=== PATIENT | male | born 1950 | race Caucasian/White ===

== ENCOUNTER 2017-05-25 10:21 | Day surgery (SDC) | payer MEDICAID ==
[2017-05-25] MEDS ORDERED: BUPIVACAINE 0.5% 30 ML SDV ONE (10:32)
[2017-05-25] MEDS ORDERED: LIDOCAINE 1% 300 MG/30 ML SDV ONE (10:32)
--- NOTE | 2017-05-25 11:06 | PDANEPAE ---
ANE History of Present Illness 66 year old male for inguinal hernia repair. ANE Past Medical History - Cardiovascular History Hx Hypertension: No Hx Arrhythmias: No Hx Chest Pain: No Hx Coronary Artery / Peripheral Vascular Disease: No Hx CHF / Valvular Disease: No Hx Palpitations: No Cardiovascular History Comment: ELEV BP - NO MEDS - Pulmonary History Hx COPD: No Hx Asthma/Reactive Airway Disease: Yes Hx Recent Upper Respiratory Infection: No Hx Oxygen in Use at Home: No Hx Sleep Apnea: No Sleep Apnea Screening Result - Last Documented: Negative Pulmonary History Comment: ASTHMA IN PAST - Neurologic History Hx Cerebrovascular Accident: No Hx Seizures: No Hx Dementia: No Neurologic History Comment: Has self reported 3 brain aneurysms - Endocrine History Hx Diabetes: No Hypothyroid: No Hyperthyroid: No Obesity: no - Renal History Hx Renal Disorders: No - Liver History Hx Hepatic Disorders: No - Neurological & Psychiatric Hx Hx Neurological and Psychiatric Disorders: No - Cancer History Hx Cancer: Yes Cancer History Comment: SKIN CA REMOVED - Congenital Disorder History Hx Congenital Disorders: No - GI History GERD: no Hx Gastrointestinal Disorders: No - Other Health History Other Health History: NEG - Chronic Pain History Chronic Pain: Yes (R LEG,HIP, THIGH) - Surgical History Prior Surgeries: TONSILLECTOMY. TENDON REPAIR KNEE L. WISDOM TEETH. ANGIOGRAM BRAIN. COLONOSCOPY ANE Review of Systems Review of systems is: negative Review of Systems: - Exercise capacity Exercise capacity: >=4 METS METS (RN): 4 METS ANE Patient History - Allergies Allergies/Adverse Reactions: No Known Allergies Allergy (Unverified 05/19/17 15:20) - Home Medications Home medications: home medication list seen and reviewed Home Medications: Aspirin 05/19/17 [Last Taken 05/20/17] Ibuprofen 05/19/17 [Last Taken 05/20/17] Herbals/Supplements -Info Only 05/25/17 [Last Taken 05/20/17] - NPO status NPO Status: no food or drink >8 hours - Anes Hx Anes Hx: no prior problems - Smoking Hx Smoking Status: Never smoked Marijuana use: No - Alcohol Use Alcohol Use: Occasionally - Family Anes Hx Family Anes Hx: neg - N/A Family Hx Anesthesia Complications: NEG ANE Labs/Vital Signs - Vital Signs Vital Signs: reviewed preoperatively; see RN documention for details Height: 172.72 cm Weight: 79.379 kg ANE Physical Exam - Airway Neck exam: FROM Mallampati Score: Class 2 Mouth exam: normal dental/mouth exam Mouth image: 1 - #8 and #9 are implants - Pulmonary Pulmonary: no respiratory distress - Cardiovascular Cardiovascular: regular rate and rhythym - ASA Status ASA Status: II ANE Anesthesia Plan Anesthesia Plan: general endotracheal anesthesia Total IV Anesthesia: No
[2017-05-25] MEDS ORDERED: LIDOCAINE 1% 2 ML INJ ID PRN (11:09)
[2017-05-25] MEDS ORDERED: LR 1,000 ML IV ONE (11:09)
--- NOTE | 2017-05-25 11:14 | PDHPUP ---
History & Physical Update H&P update statement: This history and physical update is based on an assessment of the patient which was completed after admission or registration (within 24 hours), but prior to the surgery/procedure.
[2017-05-25] MEDS ORDERED: MIDAZOLAM 2 MG/2 ML VIAL IVP ONE (11:43)
[2017-05-25] MEDS ORDERED: PROPOFOL 200 MG/20 ML VIAL ONE (11:55)
[2017-05-25] MEDS ORDERED: fentaNYL 100 MCG/2 ML INJ ONE (11:55)
[2017-05-25] MEDS ORDERED: LIDOCAINE 2% 5 ML SDV ONE (11:57)
[2017-05-25] MEDS ORDERED: ROCURONIUM 50 MG/5 ML VIAL ONE (11:57)
--- NOTE | 2017-05-25 12:08 | POSTOPPROG ---
Post Op Note Date of Operation: 05/25/17 Surgeon: Pipo Caba Anesthesiologist: Madeline Viveros Anesthesia: GET(General Endotracheal) Pre-op Diagnosis: Bilateral inguina hernia Post-op Diagnosis: same Procedure: Laparoscopic TEP bilateral inguinal herniorrhaphy Inf/Abcess present in the surg proc area at time of surgery?: No EBL: Minimal Complications: none
[2017-05-25] MEDS ORDERED: oxyCODONE IR 5 MG TAB PO PRN (12:09)
[2017-05-25] MEDS ORDERED: KETOROLAC 30 MG/1 ML SDV ONE (12:10)
[2017-05-25] MEDS ORDERED: DEXAMETHASONE 4 MG/ML VIAL ONE (12:15)
[2017-05-25] MEDS ORDERED: ONDANSETRON 4 MG/2 ML VIAL ONE (12:15)
[2017-05-25] MEDS ORDERED: SUGAMMADEX SODIUM 200 MG/2 ML VIAL IVP ONE (12:33)
[2017-05-25] MEDS ORDERED: ONDANSETRON 4 MG/2 ML VIAL IVP PRN (12:35)
[2017-05-25] MEDS ORDERED: fentaNYL 100 MCG/2 ML INJ IVP PRN (12:35)
[2017-05-25] MEDS ORDERED: PHENYLEPHRINE HCL 100 MCG/ML SYR IVP PRN (12:35)
[2017-05-25] MEDS ORDERED: NALOXONE HCL 0.4 MG/ML INJ IVP PRN (12:35)
[2017-05-25] MEDS ORDERED: HYDROCODONE/APAP 5/325 TAB PO PRN (12:35)
[2017-05-25] MEDS ORDERED: HYDROmorphONE/DILAUDID 1 MG/ML INJ IVP PRN (12:35)
[2017-05-25 13:35] VITALS: BP 126/79; TEMP 97.5
[2017-05-25 13:44] VITALS: PULSE 70; RESP 14; O2SAT 94
--- NOTE | 2017-05-25 14:34 | POSTANESTH ---
Post Anesthetic Evaluation Cardiovascular Status: Normal, Stable, Similar to Pre-Op Cond Respiratory Status: Normal, Stable, Similar to Pre-op Cond. Level of Consciousness/Mental Status: Can Participate in Eval, Alert and Oriented Pain Control: Adequate, Prn Tx Ordered Nausea/Vomiting Control: Adequate, Prn Tx Ordered Complications Possibly Related to Anesthesia: None Noted
--- NOTE | 2017-05-26 18:49 | GOP ---
[f rep st] OPERATIVE REPORT DATE OF OPERATION: 05/25/2017 SURGEON: Pipo Caba MD ANESTHESIA: General endotracheal anesthesia was used. ANESTHESIOLOGIST: Lisandro Rdz MD. PREOPERATIVE DIAGNOSIS: Bilateral inguinal hernia. POSTOPERATIVE DIAGNOSIS: Bilateral inguinal hernia. PROCEDURE PERFORMED: Laparoscopic bilateral inguinal hernia repair, TEP with 3DMax mesh. FINDINGS: SPECIMENS: None. INDICATIONS: This is a 66-year-old gentleman who presents for elective surgery. DESCRIPTION OF PROCEDURE: The patient was brought to the operating room. After induction of endotra cheal anesthesia, in supine position, the abdomen was prepped with chlorhexidine and draped sterilely . Time-out procedure was then performed according to institutional standards. Local anesthetic was infused in skin and subcutaneous tissues of the trocar sites, and open preperitoneal infraumbilical t rocar placement is performed. The balloon dissection and maintenance of the space is done with a Bar d system, and the space was insufflated to 15 torr with carbon dioxide. Working trocars were placed in the lower midline under direct visualization. The space on the left and right are dissected out. The left has a much larger inguinal hernia than the rest. Both of them are direct with a small radha rect process. After dissecting the hernias into the preperitoneal space, the hernias are bridged wit h 3DMax mesh, which are fixed with absorbable tacks. The patient has hemostasis assured. The workin g trocars were removed. Space was deflated. The fascia was closed with 0 Vicryl. The skin was reap proximated at the skin level using 4-0 Monocryl. Steri-Strips were applied. The patient awakened, e xtubated, taken to recovery room in stable condition. No immediate complications. COMPLICATIONS: None. /[id number]/MODL
== END 2017-05-25 15:14 | disposition home or self-care (01) ==
LOC: FSGY 10:21
PROVIDERS: ATTEND Surgery
PROC: 0YUA4JZ Supplement Bilateral Inguinal Region with Synthetic Substitute, Percutaneous Endoscopic Approach (ICD-10-PCS; principal; 2017-05-25 11:30)
DX: K40.20 Bilateral inguinal hernia, without obstruction or gangrene, not specified as recurrent (principal); Z86.79 Personal history of other diseases of the circulatory system
CPT/HCPCS: C1727; C1781; J1100; J1885; J2250; J2405; J2704; J3010